=== PATIENT | female | born 1970 | race Caucasian/White ===

== ENCOUNTER 2019-01-16 07:57 | Emergency (ER) | payer OTHER ==
[~2019-01-16] VITALS: Ht 170.2 cm; Wt 68.0 kg
[~2019-01-16 07:57] MED LIST: ALPRAZOLAM 0.50.5 M1 PO; CIPROFLOXACIN500 M1 PO; FLAGYL500 MG PO; HYDROCODONE-AP1 EAC6 PO; IMITREX 50 MG T50 MG; LASIX 20 MG TAB20 MG; LORTAB 7.5/5001 TA1 PO; MUSCLE RELAXER; NORCO 5-325 TA1 EACH PO; PRILOSEC 20 MG20 MG PO; PROPRANOLOL 1010 MG PO; VALIUM10 MG; ZOFRAN ODT4 MG PO
[2019-01-16 08:39] LABS: ABSOLUTE EOSINOPHILS 0.1 thou/uL (0.0-0.7); ABSOLUTE LYMPHOCYTES 1.4 thou/uL (0.8-5.3); ABSOLUTE MONOCYTES 0.5 thou/uL (0.0-1.2); ABSOLUTE NEUTROPHILS 4.7 thou/uL (1.6-8.1); BASOPHILS 0.5 %; EOSINOPHILS 1.6 %; HEMATOCRIT 38.6 % (37.0-47.0); HEMOGLOBIN 13.3 gm/dL (12.0-15.0); LYMPHOCYTES 20.5 %; MCHC 34.5 g/dL (28.0-37.0); MCV 92.8 fL (80.0-100.0); MONOCYTES 7.7 %; MPV 9.3 fl. (7.2-11.1); NUCLEATED RBCS 0 /100WBC; PLATELET COUNT* 206 thou/uL (150-400); POLYS 69.7 %; RBC 4.16 mil/uL (4.20-5.00); RDW-CV 12.6 % (10.5-14.5); WBC 6.7 thou/uL (4.0-11.0)
[2019-01-16 08:55] LABS: ALBUMIN 3.3 g/dL (3.4-5.0); CALCIUM 8.4 mg/dL (8.5-10.1); CREATININE 0.8 mg/dL (0.6-1.3); POTASSIUM 3.9 mmol/L (3.5-5.1); TOTAL BILIRUBIN 0.3 mg/dL (<0.1-1.0)
[2019-01-16 10:01] VITALS: BP 136/72
--- NOTE | 2019-01-16 16:10 | EKG ---
[place] [address] ELECTROCARDIOGRAM REPORT Name: NAE FREITAS Room: [facility] [place]#: [id number] Admission: 01/16/19 Attend Phys: Discharge: 01/16/19 Date of : 74 Report #: [id number] THIS REPORT FOR: //name// [facility] ED Test Date: 2019-01-16 Test Time: 08:57:45 Pat Name: NAE FREITAS Department: Room: Gender: F Wrapping Checker: CALVIN : 1970 Requested By: Vivek Wheeler Order Number: [id number] MD: Greg Barcenas Measurements Intervals [place] Rate: 47 P: 18 FL: 154 QRS: 54 QRSD: 92 T: 47 QT: 447 QTc: 396 Interpretive Statements Sinus bradycardia Compared to ECG 12/10/2014 15:58:55 No significant changes Electronically Signed On 01-16-2019 16:09:59 CONTROL ROOM TECHNICIAN by Greg Barcenas [email or web address] <ELECTRONICALLY SIGNED> By: Greg Barcenas MD, [facility] 01/16/19 [id number] Greg Barcenas MD, FACC /EPI
== END 2019-01-16 10:02 | disposition home or self-care (01) ==
LOC: M.ERS 07:57
PROVIDERS: Family Medicine
DX: R10.31 Right lower quadrant pain (principal); R11.2 Nausea with vomiting, unspecified; F41.9 Anxiety disorder, unspecified; G43.909 Migraine, unspecified, not intractable, without status migrainosus; Z90.710 Acquired absence of both cervix and uterus

== ENCOUNTER 2019-12-20 13:04 | Emergency (ER) | payer OTHER ==
[~2019-12-20] VITALS: Ht 170.2 cm; Wt 72.6 kg
[2019-12-20 13:13] VITALS: BP 147/105
[2019-12-20] MEDS ORDERED: IMITREX100 MG PO (13:20)
[2019-12-20] MEDS ORDERED: NORCO 5-325 TA1 EAC1 PO (14:47)
== END 2019-12-20 14:56 | disposition home or self-care (01) ==
LOC: M.ERS 13:04
DX: Z48.01 Encounter for change or removal of surgical wound dressing (principal); M79.642 Pain in left hand; Z90.710 Acquired absence of both cervix and uterus